=== PATIENT | female | born 1955 | race Caucasian/White ===

== ENCOUNTER 2022-03-19 14:52 | Emergency (ER) | payer BC ==
[~2022-03-19] VITALS: Ht 160 cm; Wt 63.5 kg
[2022-03-19 15:20] VITALS: BP_SYST 109
[2022-03-19 16:32] LABS: BASOPHILS % (AUTO) 0.3 % (0.0-2.0); EOSINOPHILS % (AUTO) 0.6 % (0.0-4.0); HEMOGLOBIN 10.9 g/dL (12.0-16.0); LYMPHOCYTES # (AUTO) 1.3 K/uL (1.0-5.5); LYMPHOCYTES % (AUTO) 20.1 % (20.5-51.5); MEAN CORPUSCULAR HEMOGLOBIN 28 pg (27-31); MEAN CORPUSCULAR HGB CONC 31 % (32-36); MEAN CORPUSCULAR VOLUME 88 fL (79.0-98.0); MONOCYTES # (AUTO) 0.2 K/uL (0.0-1.0); MONOCYTES % (AUTO) 2.6 % (1.7-9.3); NEUTROPHILS # (AUTO) 5.1 K/uL (1.8-7.7); NEUTROPHILS % (AUTO) 76.4 % (40.0-70.0); PLATELET COUNT (AUTO) 224 K/uL (130-430); RED BLOOD CELL COUNT(AUTO) 3.95 MIL/uL (4.2-6.2); RED CELL DISTRIBUTION WIDTH 22.4 % (9.0-15.0); WHITE BLOOD COUNT (AUTO) 6.6 K/uL (4.8-10.8)
[2022-03-19 16:37] LABS: CALCIUM 9.3 mg/dL (8.4-11.0); CREATININE 0.65 mg/dL (0.55-1.30); POTASSIUM 3.9 mmol/L (3.5-5.1)
[2022-03-19 16:43] LABS: ALBUMIN 2.1 g/dL (3.4-4.8); C-REACTIVE PROTEIN QUANT 2.6 mg/dL (0-0.5); TOTAL BILIRUBIN 0.3 mg/dL (0.0-1.0)
--- NOTE | 2022-03-19 18:01 | NUR ---
PT BIBA FROM [facility] FOR ASSESSMENT OF LATERAL RASH. UPON PT SKIN ASSESSENT PT DOES PRESENT WITH BULLAE ON HER LEFT LATERAL SIDE. PT DOES PRESENT WITH SKIN RASH ALL OVER HER BODY ACCORDING TO REPORT FROM EMT PT HAS HAD THIS RASH AO A MONTH AGO. BUT WAS SPECIFICALLY BROUGHT FOR THE ASSESSMENT ON HER LEFT LATERAL BULLAE. PT HAS HX OF DEMENTIA, IS AO TO NAME AT TIMES. PT IS IN BED WITH BED LOWERED, LOCKED AND RAILS UP. PT DENIES PAIN DOES STATE THAT IT ITCHES
[2022-03-19] MEDS ORDERED: NEOM28.37 TP ×2 (18:48→21:28)
[2022-03-19] MEDS ORDERED: CLIN-22 PO ×2 (18:48→21:28)
--- NOTE | 2022-03-19 21:28 | NUR ---
Tiara j[facility] called regarding patient disposition. Informed her that patient is for discharged setting up transport. We cannot get transport at this time and asked her if facility can set up transport. Staff states they do not have transport however asked her to tell their administration about the situation.
--- NOTE | 2022-03-19 22:00 | NUR ---
Patient resting quietly. No acute distress noted. Vital signs within normal range.
--- NOTE | 2022-03-20 | NUR ---
Patient resting quietly. No acute distress noted. Vital signs within normal range.
--- NOTE | 2022-03-20 04:00 | NUR ---
Patient resting quietly. No acute distress noted. Vital signs within normal range.
--- NOTE | 2022-03-20 05:30 | NUR ---
Patient moved to bed 6, awaiting transport ETA is 1130 hrs.
--- NOTE | 2022-03-20 06:05 | NUR ---
Cleaned patient and beddings changed for comfort. Still waiting for transport to go back to [facility]. Patient discharge papers ready.
--- NOTE | 2022-03-20 07:30 | NUR ---
RECEIVED PT FROM [facility] G[facility]BS. PT IS AAOX3 WITH EPISODES OF CONFUSION, SLOW TO SPEAK, CAN COMMUNICATE NEEDS AND FOLLOW COMMANDS. RESP E/U, ON R/A. NSR. ABDOMEN SOFT, NONDISTENDED. BOWEL SOUNDS ACTIVE X4. DENIES N/V/D/C. GTUBE IN PLACE. SITE WNL, DRESSING CDI. DISTAL PULSES NORMAL, BLE EDEMA NOTED. PT HAS DIFUSE RASHES AND ECORIATION THROUGH OUT BLE AND BUE. 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 VSS. SIDERAILS UP X2. BED IN LOWEST POSITION.
--- NOTE | 2022-03-20 07:47 | NUR ---
CALLED [facility] AND GAVE REPORT TO GOPI SALCEDO THAT PT WILL BE TRANSFERRED AT 1130 TODAY BACK TO FACILITY. PT HAS ORDER FOR CLINDAMYCIN CAP AND NEOMYCIN OINTMENT. SHE STATED PT RECEIVED DIABETIC SOURCE TUBE FEED AND ONLY EATS MY MOUTH FOR ORAL GRATIFICATION. CLARIFIED WITH DR. ANTONIO, PT IS STAY ON PRIOR ORDERED ROCHEPHIN IV AND START ON CLINDAMYCIN PO WELL. ALL QUESTIONS AND CONCERNS ADDRESSED. PT MADE AWARE OF TRANSPORT TIME.
--- NOTE | 2022-03-20 08:00 | NUR ---
TUBE FEED GLUCERNA INTIATED AT 60ML/HOUR WITH 150 FWW GIVEN. ASPIRATION PRECAUTIONS MAINTAINED.
--- NOTE | 2022-03-20 12:07 | NUR ---
DPatient given written and verbal discharge instructions and verbalizes understanding. ER MD discussed with patient the results and treatment provided. Patient in stable condition. ID arm band removed. Rx of CLINDAMYCIN, NEOSYN OINTMENT given. Patient educated on pain management and to follow up with PMD. Pain Scale O/10. Opportunity for questions provided and answered. Medication side effect fact sheet provided. PT TRANSFERRED BY [facility] BACK TO [facility] DISCHARGE PACKET GIVEN TO EMT. REPORT GIVEN TO GOPI LAGUNAS AT FACILITY
[2022-03-20 12:18] VITALS: BP_SYST 142
== END 2022-03-20 12:18 ==
LOC: SED 14:52
DX: L03.90 Cellulitis, unspecified (principal); L30.9 Dermatitis, unspecified; R21 Rash and other nonspecific skin eruption; Z79.899 Other long term (current) drug therapy
CPT/HCPCS: 36415; 80053; 83605; 85025; 86140; 87040; 99285

== ENCOUNTER 2022-03-22 14:13 | Inpatient (IN) | payer BC ==
[~2022-03-22] VITALS: Ht 152.4 cm; Wt 61.2 kg
[~2022-03-22 14:13] MED LIST: CLIN-22 PO; NEOM28.37 TP
[2022-03-22 14:18] VITALS: BP_SYST 126
[2022-03-22 15:35] LABS: BASOPHILS % (AUTO) 0.6 % (0.0-2.0); EOSINOPHILS # (AUTO) 0.3 K/uL (0.0-0.4); EOSINOPHILS % (AUTO) 4.1 % (0.0-4.0); HEMATOCRIT 32.4 % (36-48); HEMOGLOBIN 10.7 g/dL (12.0-16.0); LYMPHOCYTES # (AUTO) 1.9 K/uL (1.0-5.5); LYMPHOCYTES % (AUTO) 26.8 % (20.5-51.5); MEAN CORPUSCULAR HEMOGLOBIN 28 pg (27-31); MEAN CORPUSCULAR HGB CONC 33 % (32-36); MEAN CORPUSCULAR VOLUME 86 fL (79.0-98.0); MONOCYTES # (AUTO) 0.3 K/uL (0.0-1.0); MONOCYTES % (AUTO) 3.7 % (1.7-9.3); NEUTROPHILS # (AUTO) 4.5 K/uL (1.8-7.7); NEUTROPHILS % (AUTO) 64.8 % (40.0-70.0); PLATELET COUNT (AUTO) 249 K/uL (130-430); RED BLOOD CELL COUNT(AUTO) 3.79 MIL/uL (4.2-6.2); RED CELL DISTRIBUTION WIDTH 22.1 % (9.0-15.0); WHITE BLOOD COUNT (AUTO) 6.9 K/uL (4.8-10.8)
[2022-03-22 15:45] LABS: CALCIUM 8.3 mg/dL (8.4-11.0); CREATININE 0.52 mg/dL (0.55-1.30)
[2022-03-22 15:48] LABS: C-REACTIVE PROTEIN QUANT 6.5 mg/dL (0-0.5); TOTAL BILIRUBIN 0.3 mg/dL (0.0-1.0)
[2022-03-22] MEDS ORDERED: METO-442 PO (17:10)
[2022-03-22] MEDS ORDERED: ACET325T53 PO (17:10)
[2022-03-22] MEDS ORDERED: HYDR-4038 PO (17:10)
[2022-03-22] MEDS ORDERED: DIPH25TA62 PO (17:10)
[2022-03-22] MEDS ORDERED: LEVE500P GT (17:10)
[2022-03-22] MEDS ORDERED: LIP20 PO (17:10)
[2022-03-22] MEDS ORDERED: INSU100V9 SQ (17:10)
[2022-03-22] MEDS ORDERED: SSREG SUBCUT (17:10)
[2022-03-22] MEDS ORDERED: DOCU-144 PO (17:10)
[2022-03-22 18:32] VITALS: BP_SYST 127
[2022-03-22 19:20] VITALS: BP_SYST 114
[2022-03-22 19:30] VITALS: BP_SYST 114
[2022-03-23 00:29] VITALS: BP_SYST 116
[2022-03-23] MEDS ORDERED: NALOXONE HCL 0.4 MG/ML AMP (NARCAN) IVP PRN (00:45)
[2022-03-23] MEDS ORDERED: DIPHENHYDRAMINE HCL 12.5 MG/5 ML UDC PO PRN (00:45)
[2022-03-23] MEDS: DIPHENHYDRAMINE INJ 50 MG/ML VIAL IVP PRN ×2 (04:46→21:20)
[2022-03-23 04:47] VITALS: BP_SYST 138
[2022-03-23] MEDS: MORPHINE 2 MG/ML INJ. SYRINGE IVP PRN ×2 (04:47→21:21)
[2022-03-23 08:19] VITALS: BP_SYST 127
[2022-03-23 12:00] VITALS: BP_SYST 132
[2022-03-23 16:11] VITALS: BP_SYST 120
[2022-03-23 19:20] VITALS: BP_SYST 147
[2022-03-23] MEDS ORDERED: levETIRAcetam 500 MG IV PREMIX 100 ML IV SCH (22:30)
[2022-03-23] MEDS ORDERED: ACETAMINOPHEN 325 MG TABLET PO PRN (22:30)
[2022-03-23] MEDS ORDERED: cefTRIAXone 1 GM VIAL ONE (23:10)
[2022-03-24] MEDS: methylPREDNISolone SOD SUCC/PF 62.5 MG/ML VIAL IVP SCH ×5 (00:21→23:22)
[2022-03-24 00:34] VITALS: BP_SYST 114
[2022-03-24] MEDS: MORPHINE 2 MG/ML INJ. SYRINGE IVP PRN ×3 (01:26→17:43)
[2022-03-24] MEDS: DIPHENHYDRAMINE INJ 50 MG/ML VIAL IVP PRN ×2 (05:52→23:28)
[2022-03-24] MEDS: INSULIN REGULAR, HUMAN 100 UNITS/ML, 10 ML VIAL (humuLIN R) SUBCUT PRN ×4 (05:58→21:00)
[2022-03-24 08:00] VITALS: BP_SYST 95
[2022-03-24] MEDS: METOPROLOL TARTRATE 50 MG TABLET PO SCH ×2 (09:00→20:26)
[2022-03-24] MEDS: levETIRAcetam 500 MG IV PREMIX 100 ML IV SCH ×2 (11:22→23:22)
[2022-03-24 12:14] VITALS: BP_SYST 119
[2022-03-24 17:04] VITALS: BP_SYST 125
[2022-03-24 20:00] VITALS: BP_SYST 110
[2022-03-24] MEDS: DOCUSATE SODIUM 100 MG CAPSULE PO SCH (20:25)
[2022-03-25] VITALS (7 sets, daily range): BP systolic 100–148
[2022-03-25] MEDS: methylPREDNISolone SOD SUCC/PF 62.5 MG/ML VIAL IVP SCH ×3 (05:11→18:05)
[2022-03-25] MEDS: INSULIN REGULAR, HUMAN 100 UNITS/ML, 10 ML VIAL (humuLIN R) SUBCUT PRN ×4 (06:16→21:17)
[2022-03-25] MEDS: METOPROLOL TARTRATE 50 MG TABLET PO SCH ×2 (09:00→21:00)
[2022-03-25] MEDS: DIPHENHYDRAMINE INJ 50 MG/ML VIAL IVP PRN ×2 (10:33→18:05)
[2022-03-25] MEDS: levETIRAcetam 500 MG IV PREMIX 100 ML IV SCH (11:06)
[2022-03-25] MEDS: DOCUSATE SODIUM 100 MG CAPSULE PO SCH (21:18)
[2022-03-26] MEDS: methylPREDNISolone SOD SUCC/PF 62.5 MG/ML VIAL IVP SCH ×4 (00:18→18:10)
[2022-03-26] MEDS: levETIRAcetam 500 MG IV PREMIX 100 ML IV SCH ×2 (00:18→12:00)
[2022-03-26 04:00] VITALS: BP_SYST 103
[2022-03-26] MEDS: INSULIN REGULAR, HUMAN 100 UNITS/ML, 10 ML VIAL (humuLIN R) SUBCUT PRN ×3 (06:19→17:19)
[2022-03-26 08:00] VITALS: BP_SYST 109
[2022-03-26] MEDS: METOPROLOL TARTRATE 50 MG TABLET PO SCH ×2 (08:56→21:20)
[2022-03-26 12:00] VITALS: BP_SYST 95
[2022-03-26 16:00] VITALS: BP_SYST 109
[2022-03-26 20:00] VITALS: BP_SYST 126
[2022-03-26] MEDS: MORPHINE 2 MG/ML INJ. SYRINGE IVP PRN (21:19)
[2022-03-26] MEDS: DOCUSATE SODIUM 100 MG CAPSULE PO SCH (21:20)
[2022-03-26] MEDS: DIPHENHYDRAMINE INJ 50 MG/ML VIAL IVP PRN (21:20)
[2022-03-27] VITALS: BP_SYST 105
[2022-03-27] MEDS: levETIRAcetam 500 MG IV PREMIX 100 ML IV SCH ×2 (00:19→15:12)
[2022-03-27] MEDS: methylPREDNISolone SOD SUCC/PF 62.5 MG/ML VIAL IVP SCH (00:20)
[2022-03-27 07:00] VITALS: BP_SYST 147
[2022-03-27] MEDS: INSULIN REGULAR, HUMAN 100 UNITS/ML, 10 ML VIAL (humuLIN R) SUBCUT PRN ×2 (07:16→12:30)
[2022-03-27 08:00] VITALS: BP_SYST 147
[2022-03-27] MEDS ORDERED: methylPREDNISolone SOD SUCC/PF 62.5 MG/ML VIAL IVP SCH (09:00)
[2022-03-27] MEDS: METOPROLOL TARTRATE 50 MG TABLET PO SCH (09:25)
[2022-03-27] MEDS ORDERED: PRED20TA PO (13:32)
[2022-03-27 16:06] VITALS: BP_SYST 147
== END 2022-03-27 18:00 | DRG 720 ==
LOC: SED 14:13 → SMU 16:16
PROVIDERS: ADMIT Internal Medicine; ATTEND Internal Medicine
PROC: 05HY33Z Insertion of Infusion Device into Upper Vein, Percutaneous Approach (ICD-10-PCS; principal; 2022-03-22)
DX: A41.9 Sepsis, unspecified organism (principal); E43 Unspecified severe protein-calorie malnutrition; F03.90 Unspecified dementia, unspecified severity, without behavioral disturbance, psychotic disturbance, mood disturbance, and anxiety; L03.90 Cellulitis, unspecified; E11.9 Type 2 diabetes mellitus without complications; I10 Essential (primary) hypertension; Z20.822 Contact with and (suspected) exposure to COVID-19; Z86.73 Personal history of transient ischemic attack (TIA), and cerebral infarction without residual deficits; Z79.4 Long term (current) use of insulin; Z79.899 Other long term (current) drug therapy; Z68.26 Body mass index [BMI] 26.0-26.9, adult
CPT/HCPCS: 36415; 80053; 82962; 83605; 85025; 85651-TC; 86140; 86592; 87040; 87081; 99285; J0696; J1200; J1815; J1953; J2270; J2930; J7060

== ENCOUNTER 2022-10-21 14:49 | Emergency (ER) | payer BC ==
[~2022-10-21] VITALS: Ht 152.4 cm; Wt 0.9 kg
[~2022-10-21 14:49] MED LIST changes: +ACET325T53 PO; +DOCU-144 PO; +HYDR-4038 PO; +INSU100V9 SQ; +LEVE500P GT; +LIP20 PO; +METO-442 PO; +PRED20TA PO; +SSREG SUBCUT
[2022-10-21 15:09] VITALS: BP_SYST 128
--- NOTE | 2022-10-21 15:45 | NUR ---
PT RECEIVED, CARE ASSUMED. PT BIB EMS FOR EVALUATION OF CLOGGED GT. PT IN ROOM WITH DR MCPHERSON
[2022-10-21] MEDS ORDERED: GASTROGRAFIN 120 ML ONE (18:32)
--- NOTE | 2022-10-21 20:05 | NUR ---
placed pt on monitor. pt resting in bed. pt denies pain
--- NOTE | 2022-10-22 00:28 | NUR ---
pt in bed resting. unable to find transportation back to facility
--- NOTE | 2022-10-22 05:51 | NUR ---
pt resting in bed on the monitor.
--- NOTE | 2022-10-22 07:17 | NUR ---
Recieved report from [facility]. Patient resting aaox2 skin intact, clean and dry. Pt denies SOB, denies discomfort. Pt is requesting water PO. GTube clear no signs of infection at site of stomach ostomy.
--- NOTE | 2022-10-22 07:49 | NUR ---
BLOOD GLUCOSE IS 141, PATIENT IS AWAKE.
--- NOTE | 2022-10-22 07:49 | NUR ---
Contacted [facility] [phone] spoke to Giana charge nurse to clarify diet intake: 300 ml every 6 hours water for hydration via g-tube. Oral gratification as tolerated. Diabetic Soure via gtube. Pt given ice chips and observed for tolerance, Pt tolerated well.
--- NOTE | 2022-10-22 08:39 | NUR ---
Pt given 300 ml water via gtube. pt sitting at [facility] hi-fowlers. Pt tolerates well. Pt linens changed, diaper soiled and perineum cleansed and dried, pt complains of butt pain. Placed sacral pad for comfort clean diaper and repositioned patient. Pt requests a nap at this time. Lights out call light alarm within reach. bed rails up bed down.
--- NOTE | 2022-10-22 09:53 | NUR ---
Pt resting in bed with lights off.
--- NOTE | 2022-10-22 11:59 | NUR ---
Patient given written and verbal discharge instructions and verbalizes understanding. ER MD discussed with patient the results and treatment provided. Patient in stable condition. ID arm band removed.
[2022-10-22 12:02] VITALS: BP_SYST 137
== END 2022-10-22 11:59 ==
LOC: SED 14:49
DX: K94.23 Gastrostomy malfunction (principal); I10 Essential (primary) hypertension; Z79.4 Long term (current) use of insulin; Z79.899 Other long term (current) drug therapy
CPT/HCPCS: 99283; 82962; 74240; Q9963

== ENCOUNTER 2023-03-11 11:31 | Inpatient (IN) | payer BC ==
[~2023-03-11] VITALS: Ht 167.6 cm; Wt 86.2 kg
[2023-03-11 11:35] VITALS: BP_SYST 138; PULSE 62; RESP 18; TEMP 98.3; O2SAT 96
[2023-03-11 12:28] LABS: BASOPHILS % (AUTO) 0.8 % (0.0-2.0); EOSINOPHILS # (AUTO) 0.2 K/uL (0.0-0.4); EOSINOPHILS % (AUTO) 3.1 % (0.0-4.0); HEMATOCRIT 28.8 % (36-48); HEMOGLOBIN 9.3 g/dL (12.0-16.0); LYMPHOCYTES # (AUTO) 2.4 K/uL (1.0-5.5); LYMPHOCYTES % (AUTO) 37.5 % (20.5-51.5); MEAN CORPUSCULAR HEMOGLOBIN 28 pg (27-31); MEAN CORPUSCULAR HGB CONC 32 % (32-36); MEAN CORPUSCULAR VOLUME 88 fL (79.0-98.0); MONOCYTES # (AUTO) 0.4 K/uL (0.0-1.0); MONOCYTES % (AUTO) 5.8 % (1.7-9.3); NEUTROPHILS # (AUTO) 3.3 K/uL (1.8-7.7); NEUTROPHILS % (AUTO) 52.8 % (40.0-70.0); PLATELET COUNT (AUTO) 239 K/uL (130-430); RED BLOOD CELL COUNT(AUTO) 3.29 MIL/uL (4.2-6.2); RED CELL DISTRIBUTION WIDTH 18.5 % (9.0-15.0); WHITE BLOOD COUNT (AUTO) 6.3 K/uL (4.8-10.8)
[2023-03-11 12:42] LABS: INR 1.1 (0.8-1.2); PROTHROMBIN TIME 11.2 SECS (9.5-12.5)
[2023-03-11 13:20] LABS: ALANINE AMINOTRANSFERASE 11 U/L (12-78); ALBUMIN 2.8 g/dL (3.4-4.8); ANION GAP 7 (5-15); ASPARTATE AMINOTRANSFERASE 24 U/L (10-37); CARBON DIOXIDE 26 mmol/L (23-29); CHLORIDE 102 mmol/L (98-107); CREATININE 1.13 mg/dL (0.55-1.30); GFR AFRICAN AMERICAN 61 mL/min (>90); GLUCOSE 130 mg/dL (74-106); SODIUM SERUM 135 mmol/L (136-145); TOTAL BILIRUBIN 0.4 mg/dL (0.0-1.0); TOTAL PROTEIN, SERUM 7.2 g/dL (6.4-8.3); UREA NITROGEN, BLOOD 26 mg/dL (8-21)
[2023-03-11 13:47] LABS: GFR NON AFRICAN-AMERICAN 51 mL/min (>90)
[2023-03-11 14:25] LABS: BILIRUBIN,URINE 3+ (NEGATIVE); BLOOD, URINE 3+ (NEGATIVE); CLARITY/URINE CLOUDY (CLEAR); COLOR,URINE RED (YELLOW); GLUCOSE,URINE 1+ (NEGATIVE); KETONES,URINE 2+ (NEGATIVE); LEUKOCYTE ESTERASE ,URINE 3+ (NEGATIVE); NITRITE, URINE POSITIVE (NEGATIVE); PROTEIN URINE 3+ (NEGATIVE)
[2023-03-11 14:29] LABS: UROBILINOGEN,URINE >=8 (0.2-1.0)
[2023-03-11 14:31] LABS: BACTERIA,URINE MODERATE /HPF (None Seen); MUCUS,URINE 1+ /LPF (None Seen); RBC,URINE >100 /HPF (0-3); WBC,URINE 50-80 /HPF (0-3)
[2023-03-11] MEDS ORDERED: cefTRIAXone 1 GM IVPB PREMIX 50 ML IV ONE (14:45)
[2023-03-11] MEDS ORDERED: NACL 0.9% 1,000 ML IV ONE (14:45)
[2023-03-11] MEDS ORDERED: ACETAMINOPHEN 650 MG/20.3 ML UDC PO PRN (15:00)
[2023-03-11] MEDS ORDERED: cefTRIAXone 1 GM VIAL IM SCH (15:15)
[2023-03-11 17:00] VITALS: BP_SYST 117; PULSE 59; RESP 16; TEMP 97
[2023-03-11 20:00] VITALS: BP_SYST 119; PULSE 67; RESP 17; TEMP 97; O2SAT 98
[2023-03-11 23:00] VITALS: O2SAT 95
[2023-03-12] VITALS (7 sets, daily range): BP systolic 118–143; PULSE 62–69; RESP 16–20; TEMP 96.4–97.6; O2SAT 96–99
[2023-03-12] MEDS ORDERED: hydrALAZINE HCL 25 MG TABLET PO SCH (00:45)
[2023-03-12] MEDS ORDERED: ACETAMINOPHEN 325 MG TABLET PO PRN (00:45)
[2023-03-12] MEDS ORDERED: INSULIN REGULAR, HUMAN 100 UNITS/ML, 3 ML VIAL (humuLIN R) SUBCUT PRN (00:45)
[2023-03-12 05:18] LABS: BASOPHILS % (AUTO) 0.6 % (0.0-2.0); EOSINOPHILS # (AUTO) 0.1 K/uL (0.0-0.4); EOSINOPHILS % (AUTO) 2.1 % (0.0-4.0); HEMATOCRIT 29.5 % (36-48); HEMOGLOBIN 9.5 g/dL (12.0-16.0); LYMPHOCYTES # (AUTO) 1.7 K/uL (1.0-5.5); LYMPHOCYTES % (AUTO) 29.5 % (20.5-51.5); MEAN CORPUSCULAR HEMOGLOBIN 28 pg (27-31); MEAN CORPUSCULAR HGB CONC 32 % (32-36); MEAN CORPUSCULAR VOLUME 87 fL (79.0-98.0); MONOCYTES # (AUTO) 0.2 K/uL (0.0-1.0); MONOCYTES % (AUTO) 3.8 % (1.7-9.3); NEUTROPHILS # (AUTO) 3.8 K/uL (1.8-7.7); PLATELET COUNT (AUTO) 230 K/uL (130-430); RED BLOOD CELL COUNT(AUTO) 3.38 MIL/uL (4.2-6.2); RED CELL DISTRIBUTION WIDTH 18.3 % (9.0-15.0); WHITE BLOOD COUNT (AUTO) 5.9 K/uL (4.8-10.8)
[2023-03-12 05:29] LABS: CALCIUM 8.3 mg/dL (8.4-11.0); CREATININE 0.91 mg/dL (0.55-1.30); POTASSIUM 3.6 mmol/L (3.5-5.1)
[2023-03-12] MEDS: LevETIRAcetam 500 MG/5 ML UDC ORAL LIQUID GT SCH ×2 (08:51→21:52)
[2023-03-12] MEDS: METOPROLOL TARTRATE 50 MG TABLET PO SCH ×2 (08:52→21:22)
[2023-03-12] MEDS: predniSONE 20 MG TABLET PO SCH (08:52)
[2023-03-12] MEDS: INSULIN GLARGINE 100 UNITS/ML, 10 ML VIAL SQ SCH ×2 (09:00→21:00)
[2023-03-12] MEDS ORDERED: CLINDAMYCIN HCL 150 MG CAPSULE PO SCH (09:00)
[2023-03-12] MEDS ORDERED: levETIRAcetam 500 MG IV PREMIX 100 ML IV SCH (09:00)
[2023-03-12] MEDS: NEOMY SULF/BACITRAC ZN/POLY 28 GM OINT..GM. TP SCH ×3 (09:00→21:21)
[2023-03-12] MEDS ORDERED: cefTRIAXone 1 GM in D5W 50 ML IV SCH (09:00)
[2023-03-12] MEDS: INSULIN REGULAR, HUMAN 100 UNITS/ML, 3 ML VIAL (humuLIN R) SUBCUT PRN (16:54)
[2023-03-12] MEDS: ATORVASTATIN 20 MG TABLET PO SCH (21:21)
[2023-03-12] MEDS: DOCUSATE SODIUM 100 MG CAPSULE PO SCH (21:21)
[2023-03-12] MEDS ORDERED: LevETIRAcetam 500 MG/5 ML UDC ORAL LIQUID ONE (21:51)
[2023-03-13 06:45] LABS: BASOPHILS % (AUTO) 0.6 % (0.0-2.0); EOSINOPHILS # (AUTO) 0.1 K/uL (0.0-0.4); EOSINOPHILS % (AUTO) 1.3 % (0.0-4.0); HEMOGLOBIN 8.2 g/dL (12.0-16.0); LYMPHOCYTES # (AUTO) 1.6 K/uL (1.0-5.5); LYMPHOCYTES % (AUTO) 28.1 % (20.5-51.5); MEAN CORPUSCULAR HEMOGLOBIN 28 pg (27-31); MEAN CORPUSCULAR HGB CONC 33 % (32-36); MEAN CORPUSCULAR VOLUME 87 fL (79.0-98.0); MONOCYTES # (AUTO) 0.3 K/uL (0.0-1.0); MONOCYTES % (AUTO) 5.4 % (1.7-9.3); NEUTROPHILS # (AUTO) 3.7 K/uL (1.8-7.7); NEUTROPHILS % (AUTO) 64.6 % (40.0-70.0); PLATELET COUNT (AUTO) 222 K/uL (130-430); RED BLOOD CELL COUNT(AUTO) 2.88 MIL/uL (4.2-6.2); RED CELL DISTRIBUTION WIDTH 17.9 % (9.0-15.0); WHITE BLOOD COUNT (AUTO) 5.7 K/uL (4.8-10.8)
[2023-03-13 07:33] LABS: ALBUMIN 2.5 g/dL (3.4-4.8); CALCIUM 8.3 mg/dL (8.4-11.0); CREATININE 0.9 mg/dL (0.55-1.30); POTASSIUM 3.6 mmol/L (3.5-5.1); TOTAL BILIRUBIN 0.3 mg/dL (0.0-1.0); TOTAL PROTEIN, SERUM 6.4 g/dL (6.4-8.3)
[2023-03-13 08:00] VITALS: BP_SYST 127; PULSE 63; RESP 16; TEMP 97.1; O2SAT 97
[2023-03-13] MEDS: NEOMY SULF/BACITRAC ZN/POLY 28 GM OINT..GM. TP SCH ×3 (10:08→20:52)
[2023-03-13] MEDS: LevETIRAcetam 500 MG/5 ML UDC ORAL LIQUID GT SCH ×2 (10:08→20:55)
[2023-03-13] MEDS: predniSONE 20 MG TABLET PO SCH (10:10)
[2023-03-13] MEDS: METOPROLOL TARTRATE 50 MG TABLET PO SCH ×2 (10:10→20:53)
[2023-03-13] MEDS: CIPROFLOXACIN HCL 500 MG TABLET PO SCH ×2 (10:11→21:13)
[2023-03-13] MEDS: INSULIN GLARGINE 100 UNITS/ML, 10 ML VIAL SQ SCH ×2 (11:13→21:00)
[2023-03-13 12:00] VITALS: BP_SYST 134; PULSE 67; RESP 20; TEMP 98.2
[2023-03-13] MEDS: INSULIN REGULAR, HUMAN 100 UNITS/ML, 3 ML VIAL (humuLIN R) SUBCUT PRN ×3 (12:40→21:04)
[2023-03-13 16:00] VITALS: BP_SYST 127; PULSE 74; RESP 18; TEMP 98
[2023-03-13 19:30] VITALS: O2SAT 98
[2023-03-13 20:00] VITALS: BP_SYST 116; PULSE 66; RESP 18; TEMP 97.6; O2SAT 98
[2023-03-13] MEDS: DOCUSATE SODIUM 100 MG CAPSULE PO SCH (20:54)
[2023-03-13] MEDS: ATORVASTATIN 20 MG TABLET PO SCH (20:54)
[2023-03-14 01:19] VITALS: BP_SYST 121; PULSE 68; RESP 18; TEMP 97.6; O2SAT 99
[2023-03-14 07:55] LABS: BASOPHILS % (AUTO) 0.3 % (0.0-2.0); EOSINOPHILS % (AUTO) 0.1 % (0.0-4.0); HEMATOCRIT 26.7 % (36-48); HEMOGLOBIN 8.5 g/dL (12.0-16.0); LYMPHOCYTES # (AUTO) 1.9 K/uL (1.0-5.5); MEAN CORPUSCULAR HEMOGLOBIN 28 pg (27-31); MEAN CORPUSCULAR HGB CONC 32 % (32-36); MEAN CORPUSCULAR VOLUME 88 fL (79.0-98.0); MONOCYTES # (AUTO) 0.5 K/uL (0.0-1.0); MONOCYTES % (AUTO) 6.8 % (1.7-9.3); NEUTROPHILS # (AUTO) 4.8 K/uL (1.8-7.7); NEUTROPHILS % (AUTO) 66.8 % (40.0-70.0); PLATELET COUNT (AUTO) 228 K/uL (130-430); RED BLOOD CELL COUNT(AUTO) 3.03 MIL/uL (4.2-6.2); RED CELL DISTRIBUTION WIDTH 18.5 % (9.0-15.0); WHITE BLOOD COUNT (AUTO) 7.2 K/uL (4.8-10.8)
[2023-03-14 08:00] VITALS: BP_SYST 133; PULSE 60; RESP 18; TEMP 97.7; O2SAT 98
[2023-03-14 08:15] LABS: ALBUMIN 2.6 g/dL (3.4-4.8); CALCIUM 8.6 mg/dL (8.4-11.0); CREATININE 0.94 mg/dL (0.55-1.30); POTASSIUM 3.7 mmol/L (3.5-5.1); TOTAL BILIRUBIN 0.3 mg/dL (0.0-1.0); TOTAL PROTEIN, SERUM 6.8 g/dL (6.4-8.3)
[2023-03-14] MEDS: predniSONE 20 MG TABLET PO SCH (10:07)
[2023-03-14] MEDS: NEOMY SULF/BACITRAC ZN/POLY 28 GM OINT..GM. TP SCH ×3 (10:07→21:54)
[2023-03-14] MEDS: METOPROLOL TARTRATE 50 MG TABLET PO SCH ×2 (10:08→21:53)
[2023-03-14] MEDS: CIPROFLOXACIN HCL 500 MG TABLET PO SCH ×2 (10:09→22:05)
[2023-03-14] MEDS: INSULIN GLARGINE 100 UNITS/ML, 10 ML VIAL SQ SCH ×2 (10:12→22:22)
[2023-03-14] MEDS: INSULIN REGULAR, HUMAN 100 UNITS/ML, 3 ML VIAL (humuLIN R) SUBCUT PRN ×3 (12:27→22:03)
[2023-03-14] MEDS: LevETIRAcetam 500 MG/5 ML UDC ORAL LIQUID GT SCH ×2 (13:05→21:52)
[2023-03-14 20:00] VITALS: BP_SYST 131; PULSE 67; RESP 18; TEMP 97.4; O2SAT 96; O2SAT 98
[2023-03-14] MEDS: DOCUSATE SODIUM 100 MG CAPSULE PO SCH (21:52)
[2023-03-14] MEDS: ATORVASTATIN 20 MG TABLET PO SCH (21:52)
[2023-03-14] MEDS: MUPIROCIN 2% TOPICAL OINTMENT 22 GM NS SCH (22:08)
[2023-03-15 00:37] VITALS: BP_SYST 117; PULSE 59; RESP 16; TEMP 96; O2SAT 97
[2023-03-15 07:27] LABS: ALBUMIN 2.6 g/dL (3.4-4.8); CALCIUM 8.5 mg/dL (8.4-11.0); CREATININE 0.96 mg/dL (0.55-1.30); POTASSIUM 3.6 mmol/L (3.5-5.1); TOTAL BILIRUBIN 0.2 mg/dL (0.0-1.0); TOTAL PROTEIN, SERUM 6.8 g/dL (6.4-8.3)
[2023-03-15 07:41] LABS: BASOPHILS % (AUTO) 0.6 % (0.0-2.0); EOSINOPHILS % (AUTO) 0.2 % (0.0-4.0); HEMATOCRIT 26.5 % (36-48); HEMOGLOBIN 8.3 g/dL (12.0-16.0); LYMPHOCYTES # (AUTO) 2.1 K/uL (1.0-5.5); LYMPHOCYTES % (AUTO) 26.9 % (20.5-51.5); MEAN CORPUSCULAR HEMOGLOBIN 28 pg (27-31); MEAN CORPUSCULAR HGB CONC 31 % (32-36); MEAN CORPUSCULAR VOLUME 90 fL (79.0-98.0); MONOCYTES # (AUTO) 0.5 K/uL (0.0-1.0); MONOCYTES % (AUTO) 6.4 % (1.7-9.3); NEUTROPHILS # (AUTO) 5.2 K/uL (1.8-7.7); NEUTROPHILS % (AUTO) 65.9 % (40.0-70.0); PLATELET COUNT (AUTO) 207 K/uL (130-430); RED BLOOD CELL COUNT(AUTO) 2.93 MIL/uL (4.2-6.2); RED CELL DISTRIBUTION WIDTH 18.8 % (9.0-15.0); WHITE BLOOD COUNT (AUTO) 7.9 K/uL (4.8-10.8)
[2023-03-15] MEDS: METOPROLOL TARTRATE 50 MG TABLET PO SCH ×3 (09:00→21:28)
[2023-03-15] MEDS: LevETIRAcetam 500 MG/5 ML UDC ORAL LIQUID GT SCH ×2 (12:17→21:26)
[2023-03-15 12:18] VITALS: BP_SYST 110; PULSE 66; RESP 15; TEMP 96.8; O2SAT 97
[2023-03-15] MEDS: CIPROFLOXACIN HCL 500 MG TABLET PO SCH ×2 (12:22→21:27)
[2023-03-15] MEDS: predniSONE 20 MG TABLET PO SCH (12:22)
[2023-03-15] MEDS: NEOMY SULF/BACITRAC ZN/POLY 28 GM OINT..GM. TP SCH ×3 (12:23→21:30)
[2023-03-15] MEDS: MUPIROCIN 2% TOPICAL OINTMENT 22 GM NS SCH ×2 (12:23→21:38)
[2023-03-15] MEDS: INSULIN GLARGINE 100 UNITS/ML, 10 ML VIAL SQ SCH ×2 (12:28→21:44)
[2023-03-15 18:47] VITALS: BP_SYST 167; PULSE 68; RESP 15; TEMP 96.8; O2SAT 98
[2023-03-15 20:00] VITALS: O2SAT 98
[2023-03-15] MEDS: DOCUSATE SODIUM 100 MG CAPSULE PO SCH (21:31)
[2023-03-15] MEDS: ATORVASTATIN 20 MG TABLET PO SCH (21:34)
[2023-03-15] MEDS: INSULIN REGULAR, HUMAN 100 UNITS/ML, 3 ML VIAL (humuLIN R) SUBCUT PRN (21:48)
[2023-03-16 01:05] VITALS: BP_SYST 131; PULSE 60; RESP 16; TEMP 97.9; O2SAT 97
[2023-03-16 08:00] VITALS: BP_SYST 142; PULSE 56; RESP 17; TEMP 99.2; O2SAT 97
[2023-03-16] MEDS: predniSONE 20 MG TABLET PO SCH (08:55)
[2023-03-16] MEDS: METOPROLOL TARTRATE 50 MG TABLET PO SCH ×2 (08:55→21:12)
[2023-03-16] MEDS: NEOMY SULF/BACITRAC ZN/POLY 28 GM OINT..GM. TP SCH ×3 (08:56→21:14)
[2023-03-16] MEDS: LevETIRAcetam 500 MG/5 ML UDC ORAL LIQUID GT SCH ×2 (08:56→21:11)
[2023-03-16] MEDS: MUPIROCIN 2% TOPICAL OINTMENT 22 GM NS SCH ×2 (08:56→21:15)
[2023-03-16] MEDS: INSULIN GLARGINE 100 UNITS/ML, 10 ML VIAL SQ SCH ×2 (08:59→21:23)
[2023-03-16] MEDS: CIPROFLOXACIN HCL 500 MG TABLET PO SCH ×2 (10:27→21:11)
[2023-03-16] MEDS: INSULIN REGULAR, HUMAN 100 UNITS/ML, 3 ML VIAL (humuLIN R) SUBCUT PRN ×2 (11:46→16:54)
[2023-03-16 16:06] VITALS: BP_SYST 121; PULSE 64; RESP 16; TEMP 98.2; O2SAT 96
[2023-03-16 19:45] VITALS: O2SAT 97
[2023-03-16 20:00] VITALS: BP_SYST 127; PULSE 59; RESP 18; TEMP 97.6; O2SAT 97
[2023-03-16] MEDS: DOCUSATE SODIUM 100 MG CAPSULE PO SCH (21:12)
[2023-03-16] MEDS: ATORVASTATIN 20 MG TABLET PO SCH (21:12)
[2023-03-17] VITALS (7 sets, daily range): BP systolic 132–150; PULSE 18–72; RESP 16–20; TEMP 96.3–98.6; O2SAT 97–100
[2023-03-17] MEDS: METOPROLOL TARTRATE 50 MG TABLET PO SCH ×2 (08:59→21:55)
[2023-03-17] MEDS: CIPROFLOXACIN HCL 500 MG TABLET PO SCH ×2 (09:00→21:55)
[2023-03-17] MEDS: LevETIRAcetam 500 MG/5 ML UDC ORAL LIQUID GT SCH ×2 (09:03→21:54)
[2023-03-17] MEDS: NEOMY SULF/BACITRAC ZN/POLY 28 GM OINT..GM. TP SCH ×3 (09:04→21:56)
[2023-03-17] MEDS: MUPIROCIN 2% TOPICAL OINTMENT 22 GM NS SCH ×2 (09:04→21:57)
[2023-03-17] MEDS: predniSONE 20 MG TABLET PO SCH (09:05)
[2023-03-17 11:08] LABS: BASOPHILS % (AUTO) 0.3 % (0.0-2.0); EOSINOPHILS # (AUTO) 0.1 K/uL (0.0-0.4); EOSINOPHILS % (AUTO) 0.9 % (0.0-4.0); HEMATOCRIT 29.9 % (36-48); HEMOGLOBIN 9.2 g/dL (12.0-16.0); LYMPHOCYTES # (AUTO) 2.6 K/uL (1.0-5.5); LYMPHOCYTES % (AUTO) 29.4 % (20.5-51.5); MEAN CORPUSCULAR HEMOGLOBIN 28 pg (27-31); MEAN CORPUSCULAR HGB CONC 31 % (32-36); MEAN CORPUSCULAR VOLUME 92 fL (79.0-98.0); MONOCYTES # (AUTO) 0.6 K/uL (0.0-1.0); MONOCYTES % (AUTO) 6.6 % (1.7-9.3); NEUTROPHILS # (AUTO) 5.5 K/uL (1.8-7.7); NEUTROPHILS % (AUTO) 62.8 % (40.0-70.0); PLATELET COUNT (AUTO) 213 K/uL (130-430); RED BLOOD CELL COUNT(AUTO) 3.26 MIL/uL (4.2-6.2); RED CELL DISTRIBUTION WIDTH 19.5 % (9.0-15.0); WHITE BLOOD COUNT (AUTO) 8.8 K/uL (4.8-10.8)
[2023-03-17 11:18] LABS: CALCIUM 8.4 mg/dL (8.4-11.0); CREATININE 0.85 mg/dL (0.55-1.30); POTASSIUM 3.2 mmol/L (3.5-5.1)
[2023-03-17] MEDS ORDERED: CIPR250T4 PO (11:37)
[2023-03-17] MEDS: INSULIN REGULAR, HUMAN 100 UNITS/ML, 3 ML VIAL (humuLIN R) SUBCUT PRN ×3 (12:13→22:13)
[2023-03-17] MEDS: INSULIN GLARGINE 100 UNITS/ML, 10 ML VIAL SQ SCH ×2 (12:14→22:12)
[2023-03-17] MEDS ORDERED: POTASSIUM CHLORIDE 20 MEQ/PKT PACKET PO ONE (15:45)
[2023-03-17] MEDS: ATORVASTATIN 20 MG TABLET PO SCH (21:56)
[2023-03-17] MEDS: DOCUSATE SODIUM 100 MG CAPSULE PO SCH (21:56)
[2023-03-18 00:10] VITALS: BP_SYST 154; PULSE 73; RESP 18; TEMP 97.7; O2SAT 98
[2023-03-18 06:52] LABS: BASOPHILS % (AUTO) 0.2 % (0.0-2.0); EOSINOPHILS # (AUTO) 0.1 K/uL (0.0-0.4); HEMATOCRIT 26.4 % (36-48); HEMOGLOBIN 8.3 g/dL (12.0-16.0); LYMPHOCYTES # (AUTO) 3.1 K/uL (1.0-5.5); LYMPHOCYTES % (AUTO) 27.6 % (20.5-51.5); MEAN CORPUSCULAR HEMOGLOBIN 28 pg (27-31); MEAN CORPUSCULAR HGB CONC 31 % (32-36); MEAN CORPUSCULAR VOLUME 89 fL (79.0-98.0); MONOCYTES # (AUTO) 0.8 K/uL (0.0-1.0); MONOCYTES % (AUTO) 7.3 % (1.7-9.3); NEUTROPHILS # (AUTO) 7.2 K/uL (1.8-7.7); NEUTROPHILS % (AUTO) 63.9 % (40.0-70.0); PLATELET COUNT (AUTO) 241 K/uL (130-430); RED BLOOD CELL COUNT(AUTO) 2.96 MIL/uL (4.2-6.2); RED CELL DISTRIBUTION WIDTH 19.4 % (9.0-15.0); WHITE BLOOD COUNT (AUTO) 11.2 K/uL (4.8-10.8)
[2023-03-18 07:30] LABS: ALBUMIN 2.3 g/dL (3.4-4.8); CALCIUM 7.8 mg/dL (8.4-11.0); CREATININE 0.95 mg/dL (0.55-1.30); POTASSIUM 3.4 mmol/L (3.5-5.1); TOTAL BILIRUBIN 0.3 mg/dL (0.0-1.0); TOTAL PROTEIN, SERUM 5.9 g/dL (6.4-8.3)
[2023-03-18 08:00] VITALS: O2SAT 98
[2023-03-18] MEDS ORDERED: GASTROGRAFIN 120 ML ONE (08:27)
[2023-03-18] MEDS: METOPROLOL TARTRATE 50 MG TABLET PO SCH ×2 (09:25→22:42)
[2023-03-18] MEDS: predniSONE 20 MG TABLET PO SCH (09:25)
[2023-03-18] MEDS: NEOMY SULF/BACITRAC ZN/POLY 28 GM OINT..GM. TP SCH ×3 (09:26→22:44)
[2023-03-18] MEDS: LevETIRAcetam 500 MG/5 ML UDC ORAL LIQUID GT SCH ×2 (09:26→22:41)
[2023-03-18] MEDS: MUPIROCIN 2% TOPICAL OINTMENT 22 GM NS SCH ×2 (09:27→22:45)
[2023-03-18] MEDS: INSULIN GLARGINE 100 UNITS/ML, 10 ML VIAL SQ SCH ×2 (10:51→22:54)
[2023-03-18] MEDS: CIPROFLOXACIN HCL 500 MG TABLET PO SCH ×2 (11:01→22:41)
[2023-03-18 12:42] VITALS: BP_SYST 130; PULSE 64; RESP 17; TEMP 97.7; O2SAT 100
[2023-03-18 16:28] VITALS: BP_SYST 132; PULSE 69; RESP 16; TEMP 98.2; O2SAT 99
[2023-03-18] MEDS: INSULIN REGULAR, HUMAN 100 UNITS/ML, 3 ML VIAL (humuLIN R) SUBCUT PRN ×2 (17:49→23:05)
[2023-03-18 20:00] VITALS: BP_SYST 147; PULSE 71; RESP 18; TEMP 96.9; O2SAT 97
[2023-03-18] MEDS: DOCUSATE SODIUM 100 MG CAPSULE PO SCH (22:41)
[2023-03-18] MEDS: ATORVASTATIN 20 MG TABLET PO SCH (22:41)
[2023-03-19 00:33] VITALS: BP_SYST 149; PULSE 68; RESP 18; TEMP 97; O2SAT 98
[2023-03-19 05:58] LABS: BASOPHILS % (AUTO) 0.1 % (0.0-2.0); EOSINOPHILS % (AUTO) 0.1 % (0.0-4.0); HEMATOCRIT 23.9 % (36-48); HEMOGLOBIN 7.8 g/dL (12.0-16.0); LYMPHOCYTES # (AUTO) 1.4 K/uL (1.0-5.5); LYMPHOCYTES % (AUTO) 17.6 % (20.5-51.5); MEAN CORPUSCULAR HEMOGLOBIN 29 pg (27-31); MEAN CORPUSCULAR HGB CONC 32 % (32-36); MEAN CORPUSCULAR VOLUME 89 fL (79.0-98.0); MONOCYTES # (AUTO) 0.4 K/uL (0.0-1.0); NEUTROPHILS # (AUTO) 6.3 K/uL (1.8-7.7); NEUTROPHILS % (AUTO) 77.2 % (40.0-70.0); PLATELET COUNT (AUTO) 221 K/uL (130-430); WHITE BLOOD COUNT (AUTO) 8.1 K/uL (4.8-10.8)
[2023-03-19 06:13] LABS: ALBUMIN 2.1 g/dL (3.4-4.8); CALCIUM 7.7 mg/dL (8.4-11.0); CREATININE 0.74 mg/dL (0.55-1.30); POTASSIUM 3.8 mmol/L (3.5-5.1); TOTAL BILIRUBIN 0.3 mg/dL (0.0-1.0); TOTAL PROTEIN, SERUM 5.9 g/dL (6.4-8.3)
[2023-03-19 07:00] VITALS: O2SAT 95
[2023-03-19] MEDS: LevETIRAcetam 500 MG/5 ML UDC ORAL LIQUID GT SCH ×3 (09:00→23:28)
[2023-03-19] MEDS: METOPROLOL TARTRATE 50 MG TABLET PO SCH ×2 (10:09→23:28)
[2023-03-19] MEDS: predniSONE 20 MG TABLET PO SCH (10:09)
[2023-03-19] MEDS: BACITRACIN ZINC 15 GM TOPICAL OINTMENT TP SCH ×2 (10:10→23:17)
[2023-03-19] MEDS: NEOMY SULF/BACITRAC ZN/POLY 28 GM OINT..GM. TP SCH ×2 (10:10→23:17)
[2023-03-19] MEDS: MUPIROCIN 2% TOPICAL OINTMENT 22 GM NS SCH (10:11)
[2023-03-19] MEDS: INSULIN GLARGINE 100 UNITS/ML, 10 ML VIAL SQ SCH ×2 (12:39→23:36)
[2023-03-19 13:55] VITALS: BP_SYST 144; PULSE 77; RESP 17; TEMP 97.9; O2SAT 97
[2023-03-19 16:16] VITALS: BP_SYST 134; PULSE 72; TEMP 97.9; O2SAT 92
[2023-03-19] MEDS: INSULIN REGULAR, HUMAN 100 UNITS/ML, 3 ML VIAL (humuLIN R) SUBCUT PRN ×2 (19:02→23:40)
[2023-03-19 19:50] VITALS: O2SAT 96
[2023-03-19 20:00] VITALS: BP_SYST 128; PULSE 63; RESP 18; TEMP 97.2; O2SAT 96
[2023-03-19] MEDS: DOCUSATE SODIUM 100 MG CAPSULE PO SCH (23:28)
[2023-03-19] MEDS: ATORVASTATIN 20 MG TABLET PO SCH (23:28)
[2023-03-20] VITALS (7 sets, daily range): BP systolic 106–149; PULSE 63–83; RESP 14–18; TEMP 96.7–97.5; O2SAT 96–99
[2023-03-20] MEDS: NEOMY SULF/BACITRAC ZN/POLY 28 GM OINT..GM. TP SCH ×4 (06:58→21:36)
[2023-03-20] MEDS ORDERED: D5W 1,000 ML IV PRN (07:45)
[2023-03-20] MEDS ORDERED: GLUCOSE (DEXTROSE) ORAL GEL -Adults PO PRN (07:45)
[2023-03-20] MEDS ORDERED: DEXTROSE 50% JECT 50 ML DISP.SYRIN IVP PRN (07:45)
[2023-03-20] MEDS: BACITRACIN ZINC 15 GM TOPICAL OINTMENT TP SCH ×2 (09:00→21:36)
[2023-03-20] MEDS: predniSONE 20 MG TABLET PO SCH (11:19)
[2023-03-20] MEDS: LevETIRAcetam 500 MG/5 ML UDC ORAL LIQUID GT SCH ×2 (11:21→21:36)
[2023-03-20] MEDS: METOPROLOL TARTRATE 50 MG TABLET PO SCH ×2 (11:21→21:33)
[2023-03-20] MEDS: INSULIN GLARGINE 100 UNITS/ML, 10 ML VIAL SQ SCH ×2 (11:24→21:28)
[2023-03-20] MEDS: INSULIN REGULAR, HUMAN 100 UNITS/ML, 3 ML VIAL (humuLIN R) SUBCUT PRN ×3 (12:27→21:28)
[2023-03-20] MEDS: DOCUSATE SODIUM 100 MG CAPSULE PO SCH (21:32)
[2023-03-20] MEDS: ATORVASTATIN 20 MG TABLET PO SCH (21:33)
[2023-03-21 01:07] VITALS: BP_SYST 155; PULSE 71; RESP 18; TEMP 96.8; O2SAT 99
[2023-03-21 02:06] VITALS: O2SAT 99
[2023-03-21 05:53] LABS: BASOPHILS % (AUTO) 0.1 % (0.0-2.0); EOSINOPHILS % (AUTO) 0.2 % (0.0-4.0); HEMATOCRIT 24.7 % (36-48); HEMOGLOBIN 7.9 g/dL (12.0-16.0); LYMPHOCYTES # (AUTO) 2.6 K/uL (1.0-5.5); LYMPHOCYTES % (AUTO) 25.2 % (20.5-51.5); MEAN CORPUSCULAR HEMOGLOBIN 28 pg (27-31); MEAN CORPUSCULAR HGB CONC 32 % (32-36); MEAN CORPUSCULAR VOLUME 87 fL (79.0-98.0); MONOCYTES # (AUTO) 0.8 K/uL (0.0-1.0); MONOCYTES % (AUTO) 7.7 % (1.7-9.3); NEUTROPHILS % (AUTO) 66.8 % (40.0-70.0); PLATELET COUNT (AUTO) 257 K/uL (130-430); RED BLOOD CELL COUNT(AUTO) 2.82 MIL/uL (4.2-6.2); RED CELL DISTRIBUTION WIDTH 18.8 % (9.0-15.0); WHITE BLOOD COUNT (AUTO) 10.4 K/uL (4.8-10.8)
[2023-03-21 06:12] LABS: INR 1.1 (0.8-1.2)
[2023-03-21 06:16] LABS: CALCIUM 8.4 mg/dL (8.4-11.0); POTASSIUM 3.6 mmol/L (3.5-5.1)
[2023-03-21 06:17] LABS: ALBUMIN 2.2 g/dL (3.4-4.8); CREATININE 0.89 mg/dL (0.55-1.30); TOTAL BILIRUBIN 0.2 mg/dL (0.0-1.0); TOTAL PROTEIN, SERUM 6.1 g/dL (6.4-8.3)
[2023-03-21 07:00] VITALS: BP_SYST 121; RESP 16; TEMP 98; O2SAT 97
[2023-03-21 07:20] VITALS: O2SAT 97
[2023-03-21] MEDS: BACITRACIN ZINC 15 GM TOPICAL OINTMENT TP SCH ×2 (09:00→20:48)
[2023-03-21] MEDS: INSULIN GLARGINE 100 UNITS/ML, 10 ML VIAL SQ SCH ×2 (09:00→20:57)
[2023-03-21] MEDS: predniSONE 20 MG TABLET PO SCH (09:00)
[2023-03-21] MEDS: NEOMY SULF/BACITRAC ZN/POLY 28 GM OINT..GM. TP SCH ×3 (09:00→20:48)
[2023-03-21] MEDS: LevETIRAcetam 500 MG/5 ML UDC ORAL LIQUID GT SCH ×2 (09:00→20:46)
[2023-03-21] MEDS: METOPROLOL TARTRATE 50 MG TABLET PO SCH ×2 (09:00→20:45)
[2023-03-21 20:00] VITALS: BP_SYST 105; PULSE 68; RESP 17; TEMP 98.2; O2SAT 97
[2023-03-21] MEDS: DOCUSATE SODIUM 100 MG CAPSULE PO SCH (20:46)
[2023-03-21] MEDS: ATORVASTATIN 20 MG TABLET PO SCH (20:46)
[2023-03-22 00:43] VITALS: BP_SYST 110; PULSE 69; RESP 17; TEMP 98.2; O2SAT 99
[2023-03-22 02:03] VITALS: O2SAT 98
[2023-03-22 05:49] LABS: BASOPHILS % (AUTO) 0.2 % (0.0-2.0); EOSINOPHILS # (AUTO) 0.1 K/uL (0.0-0.4); EOSINOPHILS % (AUTO) 1.3 % (0.0-4.0); HEMATOCRIT 25.3 % (36-48); HEMOGLOBIN 8.1 g/dL (12.0-16.0); LYMPHOCYTES # (AUTO) 2.7 K/uL (1.0-5.5); LYMPHOCYTES % (AUTO) 33.5 % (20.5-51.5); MEAN CORPUSCULAR HEMOGLOBIN 28 pg (27-31); MEAN CORPUSCULAR HGB CONC 32 % (32-36); MEAN CORPUSCULAR VOLUME 88 fL (79.0-98.0); MONOCYTES # (AUTO) 0.5 K/uL (0.0-1.0); MONOCYTES % (AUTO) 6.2 % (1.7-9.3); NEUTROPHILS # (AUTO) 4.8 K/uL (1.8-7.7); NEUTROPHILS % (AUTO) 58.8 % (40.0-70.0); PLATELET COUNT (AUTO) 233 K/uL (130-430); RED BLOOD CELL COUNT(AUTO) 2.88 MIL/uL (4.2-6.2); WHITE BLOOD COUNT (AUTO) 8.2 K/uL (4.8-10.8)
[2023-03-22 06:38] LABS: ALBUMIN 2.2 g/dL (3.4-4.8); CALCIUM 8.1 mg/dL (8.4-11.0); CREATININE 0.76 mg/dL (0.55-1.30); POTASSIUM 3.6 mmol/L (3.5-5.1); TOTAL BILIRUBIN 0.3 mg/dL (0.0-1.0); TOTAL PROTEIN, SERUM 5.8 g/dL (6.4-8.3)
[2023-03-22 08:00] VITALS: BP_SYST 107; PULSE 64; RESP 16; TEMP 96.9; O2SAT 99
[2023-03-22] MEDS: NEOMY SULF/BACITRAC ZN/POLY 28 GM OINT..GM. TP SCH ×3 (11:03→21:00)
[2023-03-22] MEDS: BACITRACIN ZINC 15 GM TOPICAL OINTMENT TP SCH ×2 (11:04→21:00)
[2023-03-22] MEDS: LevETIRAcetam 500 MG/5 ML UDC ORAL LIQUID GT SCH ×2 (11:05→21:25)
[2023-03-22] MEDS: CIPROFLOXACIN HCL 500 MG TABLET PO SCH ×2 (11:05→21:24)
[2023-03-22] MEDS: predniSONE 20 MG TABLET PO SCH (11:05)
[2023-03-22] MEDS: METOPROLOL TARTRATE 50 MG TABLET PO SCH ×2 (11:06→21:24)
[2023-03-22] MEDS: INSULIN GLARGINE 100 UNITS/ML, 10 ML VIAL SQ SCH ×2 (11:28→21:46)
[2023-03-22 16:54] VITALS: BP_SYST 121; PULSE 73; RESP 16; TEMP 98; O2SAT 98
[2023-03-22] MEDS: INSULIN REGULAR, HUMAN 100 UNITS/ML, 3 ML VIAL (humuLIN R) SUBCUT PRN ×2 (18:29→21:48)
[2023-03-22] MEDS: DOCUSATE SODIUM 100 MG CAPSULE PO SCH (21:24)
[2023-03-22] MEDS: ATORVASTATIN 20 MG TABLET PO SCH (21:24)
[2023-03-23 00:11] VITALS: BP_SYST 121; PULSE 73; RESP 15; TEMP 97.5; O2SAT 98
[2023-03-23 06:27] LABS: BASOPHILS % (AUTO) 0.1 % (0.0-2.0); EOSINOPHILS % (AUTO) 0.6 % (0.0-4.0); LYMPHOCYTES # (AUTO) 2.3 K/uL (1.0-5.5); LYMPHOCYTES % (AUTO) 27.5 % (20.5-51.5); MEAN CORPUSCULAR HEMOGLOBIN 28 pg (27-31); MEAN CORPUSCULAR HGB CONC 32 % (32-36); MEAN CORPUSCULAR VOLUME 87 fL (79.0-98.0); MONOCYTES # (AUTO) 0.5 K/uL (0.0-1.0); MONOCYTES % (AUTO) 5.6 % (1.7-9.3); NEUTROPHILS # (AUTO) 5.5 K/uL (1.8-7.7); NEUTROPHILS % (AUTO) 66.2 % (40.0-70.0); PLATELET COUNT (AUTO) 231 K/uL (130-430); RED BLOOD CELL COUNT(AUTO) 2.48 MIL/uL (4.2-6.2); RED CELL DISTRIBUTION WIDTH 18.6 % (9.0-15.0); WHITE BLOOD COUNT (AUTO) 8.3 K/uL (4.8-10.8)
[2023-03-23 06:43] LABS: ALBUMIN 1.9 g/dL (3.4-4.8); CALCIUM 7.9 mg/dL (8.4-11.0); CREATININE 0.83 mg/dL (0.55-1.30); POTASSIUM 3.8 mmol/L (3.5-5.1); TOTAL BILIRUBIN 0.2 mg/dL (0.0-1.0); TOTAL PROTEIN, SERUM 5.3 g/dL (6.4-8.3)
[2023-03-23 07:08] LABS: HEMATOCRIT 21.6 % (36-48); HEMOGLOBIN 6.9 g/dL (12.0-16.0)
[2023-03-23 08:10] VITALS: BP_SYST 107; PULSE 71; RESP 18; TEMP 98.5; O2SAT 98
[2023-03-23] MEDS: INSULIN GLARGINE 100 UNITS/ML, 10 ML VIAL SQ SCH ×2 (09:26→21:46)
[2023-03-23] MEDS: METOPROLOL TARTRATE 50 MG TABLET PO SCH ×2 (09:28→21:43)
[2023-03-23] MEDS: LevETIRAcetam 500 MG/5 ML UDC ORAL LIQUID GT SCH ×2 (09:29→21:47)
[2023-03-23] MEDS: predniSONE 20 MG TABLET PO SCH (09:29)
[2023-03-23 09:31] LABS: BASOPHILS % (AUTO) 0.4 % (0.0-2.0); EOSINOPHILS # (AUTO) 0.1 K/uL (0.0-0.4); EOSINOPHILS % (AUTO) 0.7 % (0.0-4.0); HEMATOCRIT 22.9 % (36-48); LYMPHOCYTES # (AUTO) 2.7 K/uL (1.0-5.5); LYMPHOCYTES % (AUTO) 30.2 % (20.5-51.5); MEAN CORPUSCULAR HEMOGLOBIN 27 pg (27-31); MEAN CORPUSCULAR HGB CONC 31 % (32-36); MEAN CORPUSCULAR VOLUME 87 fL (79.0-98.0); MONOCYTES # (AUTO) 0.4 K/uL (0.0-1.0); NEUTROPHILS # (AUTO) 5.6 K/uL (1.8-7.7); NEUTROPHILS % (AUTO) 63.7 % (40.0-70.0); PLATELET COUNT (AUTO) 253 K/uL (130-430); RED BLOOD CELL COUNT(AUTO) 2.63 MIL/uL (4.2-6.2); RED CELL DISTRIBUTION WIDTH 18.5 % (9.0-15.0); WHITE BLOOD COUNT (AUTO) 8.8 K/uL (4.8-10.8)
[2023-03-23] MEDS: BACITRACIN ZINC 15 GM TOPICAL OINTMENT TP SCH ×2 (09:32→21:53)
[2023-03-23] MEDS: NEOMY SULF/BACITRAC ZN/POLY 28 GM OINT..GM. TP SCH ×3 (09:32→21:53)
[2023-03-23] MEDS: CIPROFLOXACIN HCL 500 MG TABLET PO SCH ×2 (09:35→21:43)
[2023-03-23 10:18] LABS: HEMOGLOBIN 7.2 g/dL (12.0-16.0)
[2023-03-23] MEDS: INSULIN REGULAR, HUMAN 100 UNITS/ML, 3 ML VIAL (humuLIN R) SUBCUT PRN ×3 (11:29→21:45)
[2023-03-23 12:46] VITALS: BP_SYST 110; PULSE 78; RESP 19; TEMP 98.4; O2SAT 97
[2023-03-23 16:45] VITALS: BP_SYST 101; PULSE 71; RESP 17; TEMP 98.1; O2SAT 98
[2023-03-23] MEDS: DOCUSATE SODIUM 100 MG CAPSULE PO SCH (21:42)
[2023-03-23] MEDS: ATORVASTATIN 20 MG TABLET PO SCH (21:43)
[2023-03-24 00:46] VITALS: BP_SYST 128; PULSE 72; RESP 19; TEMP 98.2; O2SAT 98
[2023-03-24 06:32] LABS: BASOPHILS # (AUTO) 0.1 K/uL (0.0-0.2); BASOPHILS % (AUTO) 0.8 % (0.0-2.0); EOSINOPHILS # (AUTO) 0.2 K/uL (0.0-0.4); EOSINOPHILS % (AUTO) 2.2 % (0.0-4.0); HEMATOCRIT 23.8 % (36-48); HEMOGLOBIN 7.6 g/dL (12.0-16.0); LYMPHOCYTES # (AUTO) 2.9 K/uL (1.0-5.5); MEAN CORPUSCULAR HEMOGLOBIN 28 pg (27-31); MEAN CORPUSCULAR HGB CONC 32 % (32-36); MEAN CORPUSCULAR VOLUME 88 fL (79.0-98.0); MONOCYTES # (AUTO) 0.5 K/uL (0.0-1.0); MONOCYTES % (AUTO) 5.5 % (1.7-9.3); NEUTROPHILS # (AUTO) 5.7 K/uL (1.8-7.7); NEUTROPHILS % (AUTO) 60.5 % (40.0-70.0); PLATELET COUNT (AUTO) 231 K/uL (130-430); RED BLOOD CELL COUNT(AUTO) 2.71 MIL/uL (4.2-6.2); RED CELL DISTRIBUTION WIDTH 18.5 % (9.0-15.0); RETICULOCYTE COUNT 5.5 % (0.5-1.5); WHITE BLOOD COUNT (AUTO) 9.5 K/uL (4.8-10.8)
[2023-03-24 06:56] LABS: CALCIUM 8.2 mg/dL (8.4-11.0); CREATININE 0.81 mg/dL (0.55-1.30); POTASSIUM 3.7 mmol/L (3.5-5.1); TOTAL BILIRUBIN 0.2 mg/dL (0.0-1.0); TOTAL PROTEIN, SERUM 5.6 g/dL (6.4-8.3)
[2023-03-24 08:40] VITALS: BP_SYST 105; PULSE 70; RESP 18; TEMP 97.9; O2SAT 97
[2023-03-24] MEDS: predniSONE 20 MG TABLET PO SCH (10:08)
[2023-03-24] MEDS: METOPROLOL TARTRATE 50 MG TABLET PO SCH ×2 (10:09→21:17)
[2023-03-24] MEDS: INSULIN GLARGINE 100 UNITS/ML, 10 ML VIAL SQ SCH ×2 (10:15→21:14)
[2023-03-24] MEDS: LevETIRAcetam 500 MG/5 ML UDC ORAL LIQUID GT SCH ×2 (10:16→21:15)
[2023-03-24] MEDS: BACITRACIN ZINC 15 GM TOPICAL OINTMENT TP SCH ×2 (10:18→21:18)
[2023-03-24] MEDS: CIPROFLOXACIN HCL 500 MG TABLET PO SCH ×2 (10:21→21:16)
[2023-03-24] MEDS: NEOMY SULF/BACITRAC ZN/POLY 28 GM OINT..GM. TP SCH ×3 (10:23→21:18)
[2023-03-24 11:30] VITALS: BP_SYST 107; PULSE 79; RESP 20; TEMP 98.9; O2SAT 100
[2023-03-24] MEDS: INSULIN REGULAR, HUMAN 100 UNITS/ML, 3 ML VIAL (humuLIN R) SUBCUT PRN ×2 (11:55→17:32)
[2023-03-24 17:30] VITALS: BP_SYST 104; PULSE 74; RESP 19; TEMP 98.4; O2SAT 96
[2023-03-24] MEDS: ATORVASTATIN 20 MG TABLET PO SCH (21:16)
[2023-03-24] MEDS: DOCUSATE SODIUM 100 MG CAPSULE PO SCH (21:16)
[2023-03-25] VITALS (7 sets, daily range): BP systolic 102–131; PULSE 61–106; RESP 16–20; TEMP 96.8–98.7; O2SAT 97–100
[2023-03-25 04:31] LABS: BASOPHILS % (AUTO) 0.3 % (0.0-2.0); EOSINOPHILS % (AUTO) 0.3 % (0.0-4.0); LYMPHOCYTES # (AUTO) 2.2 K/uL (1.0-5.5); LYMPHOCYTES % (AUTO) 24.3 % (20.5-51.5); MEAN CORPUSCULAR HEMOGLOBIN 28 pg (27-31); MEAN CORPUSCULAR HGB CONC 32 % (32-36); MEAN CORPUSCULAR VOLUME 87 fL (79.0-98.0); MONOCYTES # (AUTO) 0.4 K/uL (0.0-1.0); MONOCYTES % (AUTO) 4.3 % (1.7-9.3); NEUTROPHILS # (AUTO) 6.5 K/uL (1.8-7.7); NEUTROPHILS % (AUTO) 70.8 % (40.0-70.0); PLATELET COUNT (AUTO) 256 K/uL (130-430); RED BLOOD CELL COUNT(AUTO) 2.52 MIL/uL (4.2-6.2); RED CELL DISTRIBUTION WIDTH 18.8 % (9.0-15.0); WHITE BLOOD COUNT (AUTO) 9.2 K/uL (4.8-10.8)
[2023-03-25 04:59] LABS: INR 1.1 (0.8-1.2)
[2023-03-25 05:06] LABS: TOTAL IRON BIND. CAPACITY 309 ug/dL (250-450)
[2023-03-25] MEDS: LevETIRAcetam 500 MG/5 ML UDC ORAL LIQUID GT SCH ×2 (09:23→22:40)
[2023-03-25] MEDS: METOPROLOL TARTRATE 50 MG TABLET PO SCH ×2 (09:24→22:39)
[2023-03-25] MEDS: predniSONE 20 MG TABLET PO SCH (09:25)
[2023-03-25] MEDS: CIPROFLOXACIN HCL 500 MG TABLET PO SCH ×2 (09:25→22:47)
[2023-03-25] MEDS: BACITRACIN ZINC 15 GM TOPICAL OINTMENT TP SCH (09:30)
[2023-03-25] MEDS: NEOMY SULF/BACITRAC ZN/POLY 28 GM OINT..GM. TP SCH ×2 (09:31→15:08)
[2023-03-25] MEDS: INSULIN GLARGINE 100 UNITS/ML, 10 ML VIAL SQ SCH ×2 (09:38→21:00)
[2023-03-25 16:58] LABS: INR 1.1 (0.8-1.2); PROTHROMBIN TIME 11.2 SECS (9.5-12.5)
[2023-03-25] MEDS ORDERED: METOCLOPRAMIDE HCL 10 MG/2 ML VIAL IVP PRN (17:30)
[2023-03-25] MEDS ORDERED: ONDANSETRON HCL 4 MG/2 ML VIAL IVP PRN (17:30)
[2023-03-25] MEDS ORDERED: fentaNYL CITRATE/PF 100 MCG/2 ML AMP IVP PRN ×2 (17:30)
[2023-03-25] MEDS: DOCUSATE SODIUM 100 MG CAPSULE PO SCH (22:47)
[2023-03-25] MEDS: ATORVASTATIN 20 MG TABLET PO SCH (22:47)
[2023-03-26] VITALS (7 sets, daily range): BP systolic 130–157; PULSE 58–92; RESP 16–17; TEMP 96.6–98; O2SAT 95–98
[2023-03-26 06:06] LABS: FOLATE (FOLIC ACID) 13.7 ng/mL (>3.0)
[2023-03-26] MEDS: predniSONE 20 MG TABLET PO SCH (09:15)
[2023-03-26] MEDS: LevETIRAcetam 500 MG/5 ML UDC ORAL LIQUID GT SCH (09:15)
[2023-03-26] MEDS: METOPROLOL TARTRATE 50 MG TABLET PO SCH (09:17)
[2023-03-26] MEDS: BACITRACIN ZINC 15 GM TOPICAL OINTMENT TP SCH (09:18)
[2023-03-26] MEDS: INSULIN GLARGINE 100 UNITS/ML, 10 ML VIAL SQ SCH (09:20)
[2023-03-26] MEDS: CIPROFLOXACIN HCL 500 MG TABLET PO SCH (09:25)
[2023-03-26 10:45] LABS: BASOPHILS # (AUTO) 0.1 K/uL (0.0-0.2); BASOPHILS % (AUTO) 0.5 % (0.0-2.0); EOSINOPHILS # (AUTO) 0.1 K/uL (0.0-0.4); HEMATOCRIT 32.7 % (36-48); HEMOGLOBIN 10.9 g/dL (12.0-16.0); LYMPHOCYTES # (AUTO) 2.7 K/uL (1.0-5.5); LYMPHOCYTES % (AUTO) 25.5 % (20.5-51.5); MEAN CORPUSCULAR HEMOGLOBIN 27 pg (27-31); MEAN CORPUSCULAR HGB CONC 33 % (32-36); MEAN CORPUSCULAR VOLUME 82 fL (79.0-98.0); MONOCYTES # (AUTO) 0.5 K/uL (0.0-1.0); MONOCYTES % (AUTO) 4.9 % (1.7-9.3); NEUTROPHILS # (AUTO) 7.1 K/uL (1.8-7.7); NEUTROPHILS % (AUTO) 68.1 % (40.0-70.0); PLATELET COUNT (AUTO) 215 K/uL (130-430); RED BLOOD CELL COUNT(AUTO) 3.96 MIL/uL (4.2-6.2); RED CELL DISTRIBUTION WIDTH 18.6 % (9.0-15.0); WHITE BLOOD COUNT (AUTO) 10.5 K/uL (4.8-10.8)
[2023-03-26] MEDS ORDERED: CIPR500T5 PO (12:10)
== END 2023-03-26 17:45 | DRG 446 ==
LOC: SED 11:31 → SMU 14:57
PROVIDERS: ADMIT Internal Medicine Infectious Disease; ATTEND Internal Medicine Infectious Disease
PROC: 0TC68ZZ Extirpation of Matter from Right Ureter, Via Natural or Artificial Opening Endoscopic (ICD-10-PCS; principal; 2023-03-25 16:59)
PROC: 30233N1 Transfusion of Nonautologous Red Blood Cells into Peripheral Vein, Percutaneous Approach (ICD-10-PCS; 2023-03-26)
DX: R31.0 Gross hematuria (principal); E43 Unspecified severe protein-calorie malnutrition; D62 Acute posthemorrhagic anemia; D68.9 Coagulation defect, unspecified; E11.649 Type 2 diabetes mellitus with hypoglycemia without coma; E11.22 Type 2 diabetes mellitus with diabetic chronic kidney disease; N39.0 Urinary tract infection, site not specified; B96.20 Unspecified Escherichia coli [E. coli] as the cause of diseases classified elsewhere; E78.5 Hyperlipidemia, unspecified; E87.6 Hypokalemia; I12.9 Hypertensive chronic kidney disease with stage 1 through stage 4 chronic kidney disease, or unspecified chronic kidney disease; Z53.20 Procedure and treatment not carried out because of patient's decision for unspecified reasons; R13.10 Dysphagia, unspecified; N18.2 Chronic kidney disease, stage 2 (mild); F03.B0 Unspecified dementia, moderate, without behavioral disturbance, psychotic disturbance, mood disturbance, and anxiety; N28.1 Cyst of kidney, acquired; Z86.73 Personal history of transient ischemic attack (TIA), and cerebral infarction without residual deficits; Z79.899 Other long term (current) drug therapy; Z79.4 Long term (current) use of insulin; Z93.1 Gastrostomy status; Z87.891 Personal history of nicotine dependence; Z87.19 Personal history of other diseases of the digestive system; Z22.322 Carrier or suspected carrier of Methicillin resistant Staphylococcus aureus
CPT/HCPCS: 36415; 71045; 74018; 76376; 76770; 80048; 80053; 81000; 82607; 82728; 82746; 82962; 83540; 83550; 83605; 84484; 85025; 85044; 85610-TC; 85730-TC; 86886; 86900; 86901; 86920; 87040; 87081; 87086; 88108; 88305; 93005; 93306; 99285; C1751; C1758; C1769; J0696; J1815; J7030; J7040; J7050; J7060; J7512; P9021; Q9963